=== PATIENT | female | born 1970 | race Caucasian/White ===

== ENCOUNTER 2016-09-10 11:02 | Inpatient (IN) ==
[2016-09-10] MEDS ORDERED: ONDANSETRON 4 MG/2 ML VIAL IV STA (11:44)
[2016-09-10] MEDS ORDERED: SODIUM CHLORIDE 0.9% 1,000 ML IV STA (11:44)
[2016-09-10] MEDS ORDERED: LOPERAMIDE 2 MG CAPSULE PO STA (11:44)
[2016-09-10 12:00] LABS: Basophils % 0.4 % (0.0-0.8); Eosinophils # 0.1 10*3/uL (0.0-0.87); Hematocrit 43.5 VOL% (35.7-47.0); Hemoglobin 14.7 GM/DL (12.0-16.0); Immature Granulocytes % 0.3 %; Immature Granulocytes Absolute 0.03 #; Lymphocytes # 0.7 10*3/uL (1.4-4.0); Lymphocytes % 6.3 % (21.3-54.2); Mean Corpuscular HGB Conc 33.8 GM/DL (32-36); Mean Corpuscular Hemoglobin 29 PG (27-34); Mean Corpuscular Volume 86.8 FL (87-102); Mean Platelet Volume 9.6 FL (9.6-12.0); Monocytes # 0.6 10*3/uL (0.11-0.8); Monocytes % 5.3 % (1.7-12.7); Neutrophils # 9.6 10*3/uL (1.4-7.4); Neutrophils % 86.7 % (38.7-73.9); Platelet Count 267 T/CUMM (130-400); Red Blood Count 5.01 MC/CUMM (3.8-5.5); Red Cell Distribution Width 12.9 % (9.3-17.3); White Blood Count 11.1 T/CUMM (4-12)
[2016-09-10] MEDS ORDERED: ONDANSETRON 4 MG/2 ML VIAL ONE (12:11)
[2016-09-10] MEDS ORDERED: LOPERAMIDE 2 MG CAPSULE ONE (12:11)
--- NOTE | 2016-09-10 12:20 | Emergency Department Note ---
Annie Wilkinson Gwan, am scribing for, and in the presence of, Eric Burnett MD 11:51 . Hortencia Wilkinson James D, MD, personally performed the services described in this documentation, ascribed by Liliana Valencia in my presence, and it is both accurate and complete 219 . Arrival - Arrival Chief Complaint: Nausea/Vomiting/Diarrhea Stated Complaint: n/v/d has diabetes ED Nursing Triage Note: n/v/d onset x few hours - pt is insulin dependent DM - accu check 156 Mode of Arrival: Ambulatory Limitations: No Limitations Source: Patient, Old Records Reviewed, RN Notes Reviewed Time Seen by Provider: 09/10/16 11:38 - History of Present Illness HPI Narrative: Pt is a female who presents to the ED with a c/o N/V/D with an onset this morning. During triage, pt accu chesk was 156. 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 She denies having WHITE, any abd pain or being compliant with her medication this morning. Patient confirmed that since onset she has had emesis 3x and watery diarrhea 2x. Patient is followed by Dr. Pantoja. She then said that she consulted Dr. Pantoja and was then instructed to report to ED for further evaluation. No other problems/compliant reported in ED. Onset (ago): hour(s) Consistency: constant Severity: moderate Date of Last Menstrual Period: ablasion Allergies/Adverse Reactions: Allergies Allergy/AdvReac Type Severity Reaction Status Date / Time No Known Allergies Allergy Verified 03/07/16 00:39 Home Medications: Home Medications Medication Instructions Recorded Confirmed Type Citalopram [CeleXA] 40 mg PO BEDTIME 07/31/15 09/10/16 History Metformin HCl [Metformin HCl] 1,000 mg PO BID W/MEALS 07/31/15 09/10/16 History Rosuvastatin [Crestor] 10 mg PO DAILY 07/31/15 09/10/16 History Insulin Degludec [Tresiba 40 units SUBCUT BEDTIME 04/08/16 09/10/16 History Flextouch U-100] Topiramate 75 mg PO BID 04/08/16 09/10/16 History Aspirin EC Tab 81 mg PO DAILY 09/10/16 09/10/16 History Celecoxib [Celecoxib] 200 mg PO DAILY 09/10/16 09/10/16 History Cholecalciferol (Vitamin D3) 1,000 unit PO QAM 09/10/16 09/10/16 History [Vitamin D3] Dulaglutide [Trulicity] 0.5 ml SUBCUT PENA 09/10/16 09/10/16 History Fluticasone/Salmeterol [Advair Hfa 12 gm INH BID PRN 09/10/16 09/10/16 History 45-21 Mcg Inhaler] Gabapentin Cap/Tab [Neurontin 300 mg PO BEDTIME 09/10/16 09/10/16 History Cap/Tab] Glimepiride [Glimepiride] 1 mg PO DAILY 09/10/16 09/10/16 History Metoprolol Succinate [Metoprolol 100 mg PO BID 09/10/16 09/10/16 History Succinate] Review of System - Review of System 12 point system: reviewed and no additional remarkable complaints except as stated - Review of System Constitutional: Absent: chills, fever Head/Ears/Nose/Throat: Absent: earache Respiratory: Absent: cough Cardiovascular: Absent: chest pain Gastrointestinal: Present: as per HPI, abdominal pain, nausea, vomiting, diarrhea Medical,Surgical,& Family Hx - Medical History Cardio: History of: Hypertension Neurology: History of: Migraine, TIA Endocrine: History of: Diabetes Mellitus (IDDM) - Social History Smoking Status: Never smoker Frequency of Alcohol Use: None Type of Drug Use: None Exam Physical Examination: GENERAL: This is a well-nourished, well-developed white female in no apparent distress. VITAL SIGNS: HEENT: Head is normocephalic and atraumatic. Pupils are equally round and reactive to light. Extraocular movement are intact. Oropharynx is benign with dry mucous membranes. NECK: Neck is soft and supple without tenderness. There are no masses. There is no lymphadenopathy. LUNGS: Lungs are clear to auscultation bilaterally. Chest rises symmetrically. There is no chest wall tenderness. CV: Heart is regular rate and rhythm without murmurs, rubs, or gallops. ABDOMEN: Abdomen is soft, non-tender to palpation. There are no abnormal masses palpated. There is no organomegaly. Bowel sounds are present and active. SKIN: Skin is warm and dry. No rash. EXTREMITIES: Patient has full range of motion without tenderness. There is no pedal edema. NEUROLOGIC: Awake, alert, and oriented x4. Cranial nerves II through XII are grossly intact. There are no motorsensory deficits. PSYCHIATRIC: Normal affect. Normal mood. Vital Signs: Vital Signs Temperature 97.7 F 09/10/16 11:18 Pulse Rate 86 09/10/16 13:00 Respiratory Rate 18 09/10/16 13:00 Blood Pressure 145/97 09/10/16 13:00 O2 Sat by Pulse Oximetry 96 09/10/16 13:00 Course - Consultations Consultation #1: Discussed with Dr. Pantoja. Patient will be admitted to his service. Initial orders written for him. Care will be assumed by him upon patient's arrival to the [facility]. Time: 13:48 Results - Labs CBC & BMP: 09/10/16 11:56 09/10/16 11:56 Lab Results: I have reviewed the patients labs Labs: Laboratory Tests 09/10/16 11:56 WBC 11.1 RBC 5.01 Hgb 14.7 Hct 43.5 MCV 86.8 L Neut % (Auto) 86.7 H Lymph % (Auto) 6.3 L Neut # (Auto) 9.6 H Lymph # (Auto) 0.7 L Laboratory Tests 09/10/16 11:56 Lipase 1042.0 H - Diagnostic Findings Procedure: Abdominal x-ray: image reviewed by me (Nonspecific gas pattern, no free air, gas in the rectum.), Ultrasound: report reviewed by me (Sludge in the gallbladder, dilated duct.) Disposition Clinical Impression: Nausea vomiting and diarrhea, Diabetes mellitus, Pancreatitis Case discussed with: patient Disposition: Still a Patient Condition: Stable Time of Disposition: 13:40
--- NOTE | 2016-09-10 12:24 | XRay Report ---
History: Nausea, vomiting, diarrhea Date: 09/10/2016 Study: Flat and erect abdomen Comparison exam: No previous There is no evidence of pneumoperitoneum. The bowel gas pattern is nonobstructive without gross mass lesion. No radiopaque calculi are seen. There is no osseous abnormality. Calcified injection granulomata overlie the soft tissues of either flank. Impression: No acute abdominal process PROCEDURE INTERPRETED AT [facility] DEPARTMENT OF RADIOLOGY Final Report Signed by: Dr. Roberta Traylor
[2016-09-10 12:35] LABS: Albumin 3.8 G/DL (3.4-5.0); Bilirubin,Total 0.4 MG/DL (0.2-1.0); Calcium 8.5 MG/DL (8.5-10.1); Osmolality,Calculated 282.7 MOS/KG (273-304); Potassium 3.9 MMOL/L (3.5-5.1); Total Protein 7.9 G/DL (6.4-8.3)
--- NOTE | 2016-09-10 14:49 | Ultrasound Report ---
Exam: US gallbladder Date: 09/10/2016 1:46 PM Comparison: 02/17/2012 Indication: Pancreatitis Technique:[Multiple transabdominal real-time scans were obtained of the right upper quadrant. Color flow scans obtained. Ultrasound images were captured and stored.] Findings: Small hyperechoic foci noted in the gallbladder which do not move or produce significant acoustical shadowing. The gallbladder measures 2.6 mm with negative sonographic Dias sign. CBD measures 5.9 mm compared to 4.9 mm. The liver is normal in size with fatty infiltration. No liver masses are identified. Right kidney measures 153 mm in length with minimal dilatation of the extrarenal pelvis. The pancreas is enlarged and partially obscured by bowel gas. Pancreatic duct measures 4.5 mm compared to 3.3 mm. The aorta including the aortic bifurcation, and IVC obscured by bowel gas. Color flow documented in the portal vein. Impression: Sludge, nonshadowing small gallstones, and/or small polyps. Fatty infiltration of the liver. Persistent minimal dilatation of the right extrarenal pelvis. The pancreas is obscured by bowel gas with findings which can be seen with pancreatitis. Progressive nonspecific minimal dilatation of the pancreatic duct. PROCEDURE INTERPRETED AT [facility] DEPARTMENT OF RADIOLOGY Final Report Signed by: Dr. Trinity Yang
[2016-09-10] MEDS ORDERED: ONDANSETRON 4 MG/2 ML VIAL IV PRN (16:04)
[2016-09-10] MEDS ORDERED: GLUCAGON 1 MG VIAL IM PRN (16:04)
[2016-09-10] MEDS ORDERED: HYDROmorphone 2 MG/1 ML VIAL IV PRN (16:04)
[2016-09-10] MEDS ORDERED: FLUTICASONE INH PRN (16:31)
[2016-09-10] MEDS ORDERED: SALMETEROL INH PRN (16:31)
--- NOTE | 2016-09-10 16:35 | Internal Med History&Physical ---
Assessment and Plan (1) Pancreatitis Status: Acute Assessment and plan: 46-year-old female admitted to acute care * Acute pancreatitis. This could be related to possible gallstones or chronic cholecystitis. Patient is also on trulicity. Will start her on IV fluids. Will consult Dr. Traylor to see the patient. She has some dilatation of pancreatic duct. She may require an ERCP if not better. She may be a candidate for cholecystectomy at some stage. * Nausea vomiting and diarrhea. Will give her IV fluids. * Hypertension. Blood pressure medications will be continued * Diabetes. She will be started on a sliding scale. * Discussed with patient. Current Visit: Yes (2) Hypertension Status: Acute Current Visit: Yes (3) Obstructive sleep apnea Status: Acute Current Visit: Yes (4) History of CVA (cerebrovascular accident) Status: Acute Current Visit: Yes (5) Diabetes mellitus Status: Acute Current Visit: Yes (6) Nausea vomiting and diarrhea Status: Acute Current Visit: Yes History of Present Illness Chief complaint: Nausea vomiting and diarrhea History of present illness: Ms. Blandon is a 46 year old female with history of insulin-dependent diabetes, hypertension, obstructive sleep apnea, depression, CVA and obesity. She presented to the emergency room with complaints of nausea vomiting and diarrhea for last few days. 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 In the emergency room patient was evaluated and was found to have acute pancreatitis. She also underwent ultrasound of gallbladder which showed possible polyps versus gallstones and mildly dilated pancreatic duct. She has been admitted for evaluation and treatment. She denies any chest pain or shortness of breath. She has some abdominal discomfort. She denies any fever or chills. She has been under a lot of stress lately. She lives with her . She occasionally drinks alcohol but does not smoke Home Medications Medication Instructions Recorded Confirmed Type Citalopram [CeleXA] 40 mg PO BEDTIME 07/31/15 09/10/16 History Metformin HCl [Metformin HCl] 1,000 mg PO BID W/MEALS 07/31/15 09/10/16 History Rosuvastatin [Crestor] 10 mg PO DAILY 07/31/15 09/10/16 History Insulin Degludec [Tresiba 40 units SUBCUT BEDTIME 04/08/16 09/10/16 History Flextouch U-100] Topiramate 75 mg PO BID 04/08/16 09/10/16 History Aspirin EC Tab 81 mg PO DAILY 09/10/16 09/10/16 History Celecoxib [Celecoxib] 200 mg PO DAILY 09/10/16 09/10/16 History Cholecalciferol (Vitamin D3) 1,000 unit PO QAM 09/10/16 09/10/16 History [Vitamin D3] Dulaglutide [Trulicity] 0.5 ml SUBCUT PENA 09/10/16 09/10/16 History Fluticasone/Salmeterol [Advair Hfa 12 gm INH BID PRN 09/10/16 09/10/16 History 45-21 Mcg Inhaler] Gabapentin Cap/Tab [Neurontin 300 mg PO BEDTIME 09/10/16 09/10/16 History Cap/Tab] Glimepiride [Glimepiride] 1 mg PO DAILY 09/10/16 09/10/16 History Metoprolol Succinate [Metoprolol 100 mg PO BID 09/10/16 09/10/16 History Succinate] Allergies Allergy/AdvReac Type Severity Reaction Status Date / Time No Known Allergies Allergy Verified 03/07/16 00:39 Medical,Surgical,& Family Hx - Medical History Cardio: History of: Hypertension Neurology: History of: Cerebrovascular Accident, Migraine, Peripheral Neuropathy , TIA Endocrine: History of: Diabetes Mellitus (IDDM), Dyslipidemia Respiratory: History of: Obstructive Sleep Apnea - Surgical History Reproductive Surgeries: Surgical HX of;: Breast Surgery (Breast reduction twice) - Family History Family History: Reports;: Family Hypertension - Social History Smoking Status: Never smoker Frequency of Alcohol Use: None Type of Drug Use: None Marital Status: Lives With:: Spouse Functional capacity: independent ambulation 12 point system: reviewed and no additional remarkable complaints except as stated (As mentioned in HPI) Exam - Constitutional Vitals: Period Temp Pulse Resp BP Sys/Gonzales Pulse Ox Last 24 Hr 89-91 16-18 115-145/69-90 97-99 Exam: Examination: GENERAL: NAD. HEENT: PERRLA. EOMI. Mucous membranes are moist. NECK: Neck is supple. No JVD. No carotid bruit. No thyromegaly. CVS: Regular rate and rhythm. S1 and S2 are normal. RESPIRATORY: Lungs are clear. No rales or rhonchi. ABDOMEN: Soft but tender in right upper quadrant and epigastric area. Bowel sounds are present. There is no rebound tenderness or rigidity EXT: No edema. Peripheral pulses are present. LINGO CLEANER: Patient is awake, alert and oriented to time place and person. Cranial nerves II through XII are grossly intact. Motor strength is 5 over 5 both upper and lower extremities. SKIN: Warm and dry. MSK: No obvious deformity. Results - Labs CBC & BMP: 09/10/16 11:56 09/10/16 11:56 Lab Results: I have reviewed the past 24 hour labs
[2016-09-10] MEDS: SODIUM CHLORIDE 0.9% 1,000 ML IV SCH ×2 (16:46→23:23)
[2016-09-10] MEDS: INSULIN LISPRO 100 UNIT/ML SUBCUT SCH ×2 (16:54→20:35)
[2016-09-10] MEDS: DEXTROSE 50% 25 GM/50 ML VIAL IV PRN (20:32)
[2016-09-10] MEDS: TOPIRAMATE 25 MG TABLET PO SCH (20:34)
[2016-09-10] MEDS: CITALOPRAM 40 MG TABLET PO SCH (20:34)
[2016-09-10] MEDS: GABAPENTIN 300 MG CAPSULE PO SCH (20:34)
[2016-09-10] MEDS: DOCUSATE SODIUM 100 MG CAPSULE PO SCH (20:34)
[2016-09-10] MEDS: METOPROLOL SUCCINATE XL 100 MG TABLET PO SCH (20:35)
[2016-09-11 03:55] LABS: Basophils % 0.8 % (0.0-0.8); Eosinophils # 0.2 10*3/uL (0.0-0.87); Eosinophils % 3.1 % (0.00-10.9); Hematocrit 38.5 VOL% (35.7-47.0); Hemoglobin 12.7 GM/DL (12.0-16.0); Immature Granulocytes % 0.4 %; Immature Granulocytes Absolute 0.02 #; Lymphocytes # 0.9 10*3/uL (1.4-4.0); Lymphocytes % 17.5 % (21.3-54.2); Mean Corpuscular Hemoglobin 29 PG (27-34); Mean Corpuscular Volume 88.5 FL (87-102); Mean Platelet Volume 9.4 FL (9.6-12.0); Monocytes # 0.5 10*3/uL (0.11-0.8); Monocytes % 10.6 % (1.7-12.7); Neutrophils # 3.5 10*3/uL (1.4-7.4); Neutrophils % 67.6 % (38.7-73.9); Platelet Count 204 T/CUMM (130-400); Red Blood Count 4.35 MC/CUMM (3.8-5.5); White Blood Count 5.1 T/CUMM (4-12)
[2016-09-11 04:46] LABS: Albumin 3.2 G/DL (3.4-5.0); Bilirubin,Total 0.5 MG/DL (0.2-1.0); Calcium 7.6 MG/DL (8.5-10.1); Potassium 3.5 MMOL/L (3.5-5.1); Total Protein 5.8 G/DL (6.4-8.3)
[2016-09-11] MEDS: ACETAMINOPHEN 325 MG TABLET PO PRN ×2 (05:27→10:30)
[2016-09-11] MEDS: SODIUM CHLORIDE 0.9% 1,000 ML IV SCH ×3 (05:30→12:53)
--- NOTE | 2016-09-11 08:03 | Internal Med Progress Note ---
Assessment and Plan (1) Pancreatitis Status: Acute Assessment and plan: 46-year-old female admitted to acute care * Acute pancreatitis. She is doing much better today. Her lipase is down. Her abdominal pain is better. She is still n.p.o. Dr. Traylor will see her today. We can advance her diet if it is okay with GI. She may require ERCP and /or cholecystectomy * Nausea vomiting and diarrhea. Resolved. Will decrease IV fluids. * Hypertension. Blood pressure medications will be continued * Diabetes. She will be started on a sliding scale. * Discussed with patient. Current Visit: Yes (2) Hypertension Status: Acute Current Visit: Yes (3) Obstructive sleep apnea Status: Acute Current Visit: Yes (4) History of CVA (cerebrovascular accident) Status: Acute Current Visit: Yes (5) Diabetes mellitus Status: Acute Current Visit: Yes (6) Nausea vomiting and diarrhea Status: Acute Current Visit: Yes Internal Medicine - PN: Subj Interval history: She is feeling better this morning. No chest pain or shortness of breath. No nausea vomiting or diarrhea. She is having some headaches. Exam (Progress Note) - Constitutional Vitals: Period Temp Pulse Resp BP Sys/Gonzales Pulse Ox Last 24 Hr 97.5 F-99.6 F 83-94 16-20 114-145/59-90 92-99 Exam: Examination: GENERAL: NAD. NECK: Neck is supple. CVS: Regular rate and rhythm. RESPIRATORY: Lungs are clear. ABDOMEN: Soft but tender in right upper quadrant and epigastric area. There is no rebound tenderness or rigidity EXT: No edema. [employer]: Nonfocal SKIN: Warm and dry. MSK: No obvious deformity. Results - Labs CBC & BMP: 09/11/16 03:35 09/11/16 03:35 Lab Results: I have reviewed the past 24 hour labs
[2016-09-11] MEDS: INSULIN LISPRO 100 UNIT/ML SUBCUT SCH ×4 (08:23→20:00)
[2016-09-11 08:26] LABS: Risk Ratio 4.92; VLDL CHOLESTEROL 31.2 MG/DL
--- NOTE | 2016-09-11 09:58 | Gastrointestinal Consult Note ---
Assessment and Plan (1) Pancreatitis Status: Acute Assessment and plan: 09/11-Sudden onset N/V, abd pain with findings of elevated lipase on admission. US results noted as below. Lipase down at 374 today. Pain improved. Plan and addendum to follow by Dr Traylor. Current Visit: Yes History of Present Illness Chief complaint: Abd pain, N/V History of present illness: Ms. Blandon is a 46 year old female who presented to the ER on yesterday following onset of nausea, vomiting and abdominal pain. Pt states that she went to work yesterday morning but wasnt feeling well. She states shortly after getting to work she had onset of nausea and began vomiting. States she vomited a couple of times and decided to leave work. On the way home she became so nauseated that she decided to go to the ER for further evaluation. She states she also had some abdominal pain, discomfort in her upper abdomen along with the nausea and vomiting. She denies any fever or chills. Denies any coffee ground or hemetemesis. 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 Pt was found on admission to have elevated lipase level at 1042. She had an US as well that showed sludge and small gallstones with CBD at 5.9mm as well as fatty liver. Pancreas was obscured by bowel gas on exam. LFTs were unremarkable. Lipase is down today at 374. Pt states she has had an episode of pancreatitis in the past 5 years ago but states she was not told the cause of this. She has a negative history of ETOH other than occasional drink a couple of times a year. She does not smoke. She denies any weight loss or history of gallbladder disease. Home Medications Medication Instructions Recorded Confirmed Type Citalopram [CeleXA] 40 mg PO BEDTIME 07/31/15 09/10/16 History Metformin HCl [Metformin HCl] 1,000 mg PO BID W/MEALS 07/31/15 09/10/16 History Rosuvastatin [Crestor] 10 mg PO DAILY 07/31/15 09/10/16 History Insulin Degludec [Tresiba 40 units SUBCUT BEDTIME 04/08/16 09/10/16 History Flextouch U-100] Topiramate 75 mg PO BID 04/08/16 09/10/16 History Aspirin EC Tab 81 mg PO DAILY 09/10/16 09/10/16 History Celecoxib [Celecoxib] 200 mg PO DAILY 09/10/16 09/10/16 History Cholecalciferol (Vitamin D3) 1,000 unit PO QAM 09/10/16 09/10/16 History [Vitamin D3] Dulaglutide [Trulicity] 0.5 ml SUBCUT PENA 09/10/16 09/10/16 History Fluticasone/Salmeterol [Advair Hfa 12 gm INH BID PRN 09/10/16 09/10/16 History 45-21 Mcg Inhaler] Gabapentin Cap/Tab [Neurontin 300 mg PO BEDTIME 09/10/16 09/10/16 History Cap/Tab] Glimepiride [Glimepiride] 1 mg PO DAILY 09/10/16 09/10/16 History Metoprolol Succinate [Metoprolol 100 mg PO BID 09/10/16 09/10/16 History Succinate] Allergies Allergy/AdvReac Type Severity Reaction Status Date / Time No Known Allergies Allergy Verified 03/07/16 00:39 Medical,Surgical,& Family Hx - Medical History Cardio: History of: Hypertension Neurology: History of: Cerebrovascular Accident, Migraine, Peripheral Neuropathy , TIA Endocrine: History of: Diabetes Mellitus (IDDM), Dyslipidemia Respiratory: History of: Obstructive Sleep Apnea - Surgical History Reproductive Surgeries: Surgical HX of;: Breast Surgery (Breast reduction twice) - Family History Family History: Reports;: Family Hypertension - Social History Smoking Status: Never smoker Frequency of Alcohol Use: None Type of Drug Use: None 12 point system: reviewed and no additional remarkable complaints except as stated - Constitutional Constitutional: Present: as per HPI - EENT Eyes: Present: as per HPI Ears: Present: as per HPI Nose, mouth and throat: Present: as per HPI - Cardiovascular Cardiovascular: Present: as per HPI - Respiratory Respiratory: Present: as per HPI - Gastrointestinal Gastrointestinal: Present: as per HPI, abdominal pain, nausea, vomiting - Genitourinary Genitourinary: Present: as per HPI - Musculoskeletal Musculoskeletal: Present: as per HPI - Neurological Neurological: Present: as per HPI - Psychiatric Psychiatric: Present: as per HPI - Endocrine Endocrine: Present: as per HPI - Hematologic/Lymphatic Hematologic/Lymphatic: Present: as per HPI Exam - Constitutional Vitals: Period Temp Pulse Resp BP Sys/Gonzales Pulse Ox Last 24 Hr 97.5 F-99.6 F 81-94 16-20 112-145/59-90 91-99 General appearance: no acute distress, over weight - Head Head exam: Present: normal inspection, normocephalic - Eye Eye exam: Present: other (lids and conjunctiva unremarakble). Absent: scleral icterus - ENT ENT exam: Present: normal exam, normal oropharynx - Neck Neck exam: Present: normal inspection - Respiratory Respiratory exam: Present: clear to auscultation bilaterally. Absent: rales, rhonchi, wheezes - Cardiovascular Cardiovascular exam: Present: regular rate and rhythm. Absent: diastolic murmur , JVD, systolic murmur - GI/Abdominal GI/Abdominal exam: Present: normal bowel sounds, tenderness, soft. Absent: ascites, distended, mass, organomegaly - Extremities Exam Extremities exam: Present: normal inspection, full ROM - Back Exam Back exam: Present: normal inspection - Neurological Exam Neurological exam: Present: alert, oriented X3 - Psychiatric Psychiatric exam: Present: normal affect, normal mood - Skin Skin exam: Present: normal color, warm, dry Results - Labs CBC & BMP: 09/11/16 03:35 09/11/16 03:35 Lab Results: I have reviewed the past 24 hour labs - Diagnostic Findings Procedure: Ultrasound: report reviewed by me
[2016-09-11] MEDS: TOPIRAMATE 25 MG TABLET PO SCH ×2 (10:29→21:09)
[2016-09-11] MEDS: PANTOPRAZOLE 40 MG TABLET PO SCH (10:29)
[2016-09-11] MEDS: DOCUSATE SODIUM 100 MG CAPSULE PO SCH ×2 (10:29→21:20)
[2016-09-11] MEDS: METOPROLOL SUCCINATE XL 100 MG TABLET PO SCH ×2 (10:32→21:09)
--- NOTE | 2016-09-11 12:18 | General Surgery Consult Note ---
Assessment and Plan - Time spent with patient Time spent with patient: Less than 30 minutes (1) Pancreatitis Status: Acute Assessment and plan: Her pancreatitis appears to be resolving and likely was from her small gallstones and sludge. She has no evidence of biliary obstruction and appears improved. I discussed the need for cholecystectomy prevent recurrence. Procedure has been discussed and she is thinking about it. She wants to follow with me in my office on Wednesday to discuss this further and discuss whether to go ahead with cholecystectomy. Current Visit: Yes Qualifiers: Chronicity: acute Pancreatitis type: biliary History of Present Illness Chief complaint: pancreatitis History of present illness: Ms. Blandon is a 46 year old female Who presented with vague epigastric pain and nausea and was noted to have elevated lipase and gallstones. Her pain and nausea subsided. The pain she described as mild to moderate and localized to the epigastric region. She does not know of aggravating or alleviating factors. She had a ultrasound which showed gallstones and sludge and no ductal dilatation. She states that she has had previous similar episode. Home Medications Medication Instructions Recorded Confirmed Type Citalopram [CeleXA] 40 mg PO BEDTIME 07/31/15 09/10/16 History Metformin HCl [Metformin HCl] 1,000 mg PO BID W/MEALS 07/31/15 09/10/16 History Rosuvastatin [Crestor] 10 mg PO DAILY 07/31/15 09/10/16 History Insulin Degludec [Tresiba 40 units SUBCUT BEDTIME 04/08/16 09/10/16 History Flextouch U-100] Topiramate 75 mg PO BID 04/08/16 09/10/16 History Aspirin EC Tab 81 mg PO DAILY 09/10/16 09/10/16 History Celecoxib [Celecoxib] 200 mg PO DAILY 09/10/16 09/10/16 History Cholecalciferol (Vitamin D3) 1,000 unit PO QAM 09/10/16 09/10/16 History [Vitamin D3] Dulaglutide [Trulicity] 0.5 ml SUBCUT PENA 09/10/16 09/10/16 History Fluticasone/Salmeterol [Advair Hfa 12 gm INH BID PRN 09/10/16 09/10/16 History 45-21 Mcg Inhaler] Gabapentin Cap/Tab [Neurontin 300 mg PO BEDTIME 09/10/16 09/10/16 History Cap/Tab] Glimepiride [Glimepiride] 1 mg PO DAILY 09/10/16 09/10/16 History Metoprolol Succinate [Metoprolol 100 mg PO BID 09/10/16 09/10/16 History Succinate] Allergies Allergy/AdvReac Type Severity Reaction Status Date / Time No Known Allergies Allergy Verified 03/07/16 00:39 Medical,Surgical,& Family Hx - Medical History Cardio: History of: Hypertension Neurology: History of: Cerebrovascular Accident, Migraine, Peripheral Neuropathy , TIA Endocrine: History of: Diabetes Mellitus (IDDM), Dyslipidemia Respiratory: History of: Obstructive Sleep Apnea - Surgical History Reproductive Surgeries: Surgical HX of;: Breast Surgery (Breast reduction twice) - Family History Family History: Reports;: Family Hypertension - Social History Smoking Status: Never smoker Frequency of Alcohol Use: None Type of Drug Use: None - Constitutional Constitutional: Absent: chills, fever(s) - Cardiovascular Cardiovascular: Absent: chest pain at rest, chest pain with activity - Respiratory Respiratory: Absent: cough, dyspnea - Gastrointestinal Gastrointestinal: Present: abdominal pain, nausea, vomiting. Absent: jaundice Exam - Constitutional Vitals: Period Temp Pulse Resp BP Sys/Gonzales Pulse Ox Last 24 Hr 97.5 F-99.6 F 81-94 16-20 112-145/59-90 91-99 General appearance: no acute distress, morbidly obese - Head Head exam: Present: normocephalic - Eye Eye exam: Absent: scleral icterus - ENT Mouth exam: Present: normal voice - Neck Neck exam: Present: trachea midline - Respiratory Respiratory exam: Present: clear to auscultation bilaterally. Absent: accessory muscle use - Cardiovascular Cardiovascular exam: Present: RRR - GI/Abdominal GI/Abdominal exam: Present: soft. Absent: distended, guarding, mass, Dias's sign, tenderness, rebound - Neurological Exam Neurological exam: Present: alert, oriented X3 Speech: Present: normal Results - Labs CBC & BMP: 09/11/16 03:35 09/11/16 03:35 Lab Results: I have reviewed the past 24 hour labs
[2016-09-11] MEDS: DEXTROSE 50% 25 GM/50 ML VIAL IV PRN ×2 (12:47→20:54)
[2016-09-11] MEDS: GABAPENTIN 300 MG CAPSULE PO SCH (21:18)
[2016-09-11] MEDS: CITALOPRAM 40 MG TABLET PO SCH (21:20)
[2016-09-12] MEDS: DEXTROSE 50% 25 GM/50 ML VIAL IV PRN (01:49)
[2016-09-12 04:22] LABS: Basophils % 0.7 % (0.0-0.8); Eosinophils # 0.2 10*3/uL (0.0-0.87); Eosinophils % 3.8 % (0.00-10.9); Hematocrit 37.7 VOL% (35.7-47.0); Hemoglobin 12.5 GM/DL (12.0-16.0); Lymphocytes # 1.2 10*3/uL (1.4-4.0); Mean Corpuscular HGB Conc 33.2 GM/DL (32-36); Mean Corpuscular Hemoglobin 29 PG (27-34); Mean Corpuscular Volume 87.3 FL (87-102); Monocytes # 0.6 10*3/uL (0.11-0.8); Monocytes % 13.2 % (1.7-12.7); Neutrophils # 2.3 10*3/uL (1.4-7.4); Neutrophils % 54.3 % (38.7-73.9); Platelet Count 215 T/CUMM (130-400); Red Blood Count 4.32 MC/CUMM (3.8-5.5); Red Cell Distribution Width 13.2 % (9.3-17.3); White Blood Count 4.3 T/CUMM (4-12)
[2016-09-12 04:47] LABS: Alanine Aminotransferase 30 U/L (13-56); Albumin 3.1 G/DL (3.4-5.0); Alkaline Phosphatase 37 U/L (45-117); Aspartate Amino Transferase 25 U/L (0-37); Bilirubin,Total < 0.39 MG/DL (0.2-1.0); Blood Urea Nitrogen 5 MG/DL (7-18); Calcium 8.3 MG/DL (8.5-10.1); Glucose 153 MG/DL (74-106); Potassium 4.2 MMOL/L (3.5-5.1); Sodium 143 MMOL/L (136-145); Total Protein 6.2 G/DL (6.4-8.3)
[2016-09-12] MEDS: ACETAMINOPHEN 325 MG TABLET PO PRN (06:17)
--- NOTE | 2016-09-12 07:51 | Family Practice Progress Note ---
Family Practice - PN: Subj Interval history: Patient seen this morning she is stable had a fairly good night last night. Her CBC this morning is normal. Chemistry reveals a glucose of 80 she did go down fairly significantly. Her amylase and lipase are within normal limits this morning at 37 and 119. Not having any significant pain with palpation, just a little bit of midepigastric fullness. Will consider discharging either later today or tomorrow. Exam (Progress Note) - Constitutional Vitals: Period Temp Pulse Resp BP Sys/Gonzales Pulse Ox Last 24 Hr 97.3 F-98.7 F 72-78 16-20 114-144/57-75 91-98 Exam: Generally unchanged from previous. HEENT pupils equal reactive to light neck supple trachea midline Cardiovascular rate is regular rate 78 blood pressure 142/75 Lungs clear Abdomen soft, no tenderness. Patient states she has some baseline mid abdominal discomfort but is with her all the time Results - Labs CBC & BMP: 09/12/16 02:40 09/12/16 02:40 Specialty Discharge - Follow Up or Referrals Follow up with: Ruy Miner III., MD [Physician] - 09/14/16 10:30 am
[2016-09-12] MEDS: DOCUSATE SODIUM 100 MG CAPSULE PO SCH ×2 (08:35→21:00)
[2016-09-12] MEDS: PANTOPRAZOLE 40 MG TABLET PO SCH (08:35)
[2016-09-12] MEDS: TOPIRAMATE 25 MG TABLET PO SCH ×2 (08:35→20:59)
[2016-09-12] MEDS: METOPROLOL SUCCINATE XL 100 MG TABLET PO SCH ×2 (08:36→21:00)
[2016-09-12] MEDS: INSULIN LISPRO 100 UNIT/ML SUBCUT SCH ×4 (09:09→21:03)
[2016-09-12] MEDS: SODIUM CHLORIDE 0.9% 1,000 ML IV SCH ×4 (09:10→18:49)
[2016-09-12] MEDS: CITALOPRAM 40 MG TABLET PO SCH (20:59)
[2016-09-12] MEDS: GABAPENTIN 300 MG CAPSULE PO SCH (21:00)
[2016-09-13] MEDS: SODIUM CHLORIDE 0.9% 1,000 ML IV SCH (04:33)
[2016-09-13 08:02] VITALS: BP 131/91
[2016-09-13] MEDS: INSULIN LISPRO 100 UNIT/ML SUBCUT SCH (08:46)
[2016-09-13] MEDS: TOPIRAMATE 25 MG TABLET PO SCH (08:47)
[2016-09-13] MEDS: DOCUSATE SODIUM 100 MG CAPSULE PO SCH (08:47)
[2016-09-13] MEDS: PANTOPRAZOLE 40 MG TABLET PO SCH (08:47)
--- NOTE | 2016-09-13 08:47 | Discharge Summary ---
Hospital Course - Hospital Course Hospital Course: Patient a 46-year-old female came to the hospital with nausea vomiting abdominal pain it was found that she has pancreatitis with elevated amylase and lipase. Did have some small gallstones and sludge on ultrasound, her common bile duct was measured at 5.9 mm. And was seen by both GI and surgery. She is doing much better now. Does have fairly brittle diabetes but sugars have been under control. Her liver function tests have been unremarkable. Has had discussion with general surgery concerning removal gallbladder and the going to do this on an outpatient basis, Dr. Kristofer Quiroz third and this will be scheduled what she cools down a little bit from the current situation Specialty Discharge - Follow Up or Referrals Follow up with: Ruy Miner III., MD [Physician] - 09/14/16 10:30 am Discharge Plan - Discharge Data Disposition: Disch To Home/Self Care Condition at Discharge: Stable Discharge Diet: advance to your usual diet, low fat, low cholesterol Activity: resume usual activities as tolerated Hygiene: no restrictions Weight Bearing at Discharge: full weight bearing Driving: no restrictions Contact your physician if you experience:: fever over 101, Nausea/Vomiting, pain uncontrolled by pain medications - Discharge Medications Continue Citalopram [CeleXA] 40 mg PO BEDTIME Rosuvastatin [Crestor] 10 mg PO DAILY Topiramate 75 mg PO BID Insulin Degludec [Tresiba Flextouch U-100] 40 units SUBCUT BEDTIME Aspirin EC Tab 81 mg PO DAILY Dulaglutide [Trulicity] 0.5 ml SUBCUT PENA Gabapentin Cap/Tab [Neurontin Cap/Tab] 300 mg PO BEDTIME Celecoxib 200 mg PO DAILY Metoprolol Succinate 100 mg PO BID Fluticasone/Salmeterol [Advair Hfa 45-21 Mcg Inhaler] 12 gm INH BID PRN PRN Reason: Shortness Of Breath/Wheezing Cholecalciferol (Vitamin D3) [Vitamin D3] 1,000 unit PO QAM Discontinued Metformin HCl [Metformin HCl] 1,000 mg PO BID W/MEALS Glimepiride [Glimepiride] 1 mg PO DAILY - Follow Up or Referral Follow Up: Ruy Miner III., MD [Physician] - 09/14/16 10:30 am Juan Manuel Pantoja MD [Physician] - 2 Weeks - Forms/Instructions Exam - Constitutional Vitals: Period Temp Pulse Resp BP Sys/Gonzales Pulse Ox Last 24 Hr 97.0 F-99.1 F 62-84 15-20 92-134/57-91 95-99 Discharge Results Labs on day of discharge: Labs from last 24 hours 09/13/16 09/12/16 09/12/16 07:31 20:58 15:42 POC Glucose 121 H 136 H 164 H 09/12/16 11:14 POC Glucose 140 H DS: Provider Date of admission: 09/10/16 13:42 Primary care physician: . No PCP Attending physician on admission: Juan Manuel Pantoja MD Consults: 09/10/16 16:04 Consult to Case Mgmt/Social Srvs [CONS] Routine Reason for Case Mgmt/Social Srvs: Discharge Planning 09/10/16 16:16 Consult to Pharmacy [CONS] Routine Reason for Pharmacy Consult: Adjust Meds Renal Funct 09/10/16 16:31 Consult to Physician [CONS] Routine Comment: Acute pancreatitis and possible cholelithiasis Consulting Provider: Waqas Traylor Person Notified: KRUPA IN DR [facility] OFFICE Date Notified: 09/11/16 Time Notified: 08:58 Discharging clinician: Martinez Duron DO
[2016-09-13] MEDS: METOPROLOL SUCCINATE XL 100 MG TABLET PO SCH (08:48)
== END 2016-09-13 11:02 | disposition home or self-care (01) | DRG 440 ==
LOC: N.ED 11:02 → N.EDINP 13:42 → N.2E 15:45
PROVIDERS: ADMIT Internal Medicine; ATTEND Internal Medicine

== ENCOUNTER 2022-07-18 18:07 | Inpatient (IN) ==
[2022-07-18] MEDS ORDERED: SODIUM CHLORIDE 0.9% 1,000 ML IV STA (20:38)
[2022-07-18] MEDS ORDERED: ONDANSETRON 4 MG/2 ML VIAL IV ONE (20:38)
[2022-07-18 21:12] LABS: Basophils % 0.7 % (0.0-0.8); Eosinophils # 0.1 10*3/uL (0.0-0.87); Eosinophils % 1.9 % (0.00-10.9); Hematocrit 46.4 VOL% (35.7-47.0); Hemoglobin 15.2 GM/DL (12.0-16.0); Immature Granulocytes % 0.3 %; Immature Granulocytes Absolute 0.02 #; Lymphocytes # 1.6 10*3/uL (1.4-4.0); Lymphocytes % 27.1 % (21.3-54.2); Mean Corpuscular HGB Conc 32.8 GM/DL (32-36); Mean Corpuscular Volume 86.4 FL (87-102); Mean Platelet Volume 9.7 FL (9.6-12.0); Monocytes # 0.4 10*3/uL (0.11-0.8); Monocytes % 7.3 % (1.7-12.7); Neutrophils % 62.7 % (38.7-73.9); Platelet Count 179 T/CUMM (130-400); Red Blood Count 5.37 MC/CUMM (3.8-5.5); White Blood Count 5.87 T/CUMM (4-12)
[2022-07-18 21:22] LABS: Mucus,Urine Occasional /LPF (Occasional); RBC,Urine 1 /HPF (0-4); Squamous Epithelial Cell,Urine Occasional /HPF (0-10)
[2022-07-18 21:23] LABS: Urine Appearance Clear (Clear); Urine Color Yellow (Yellow); Urine pH 5.5 (4.5-8.0)
[2022-07-18 21:24] LABS: Bilirubin,Urine Negative (Negative); Blood, Urine Negative (Negative); Ketones,Urine Negative (Negative); Nitrite,Urine Negative (Negative); Protein,Urine Trace mg/dL (Negative); Urine Specific Gravity >= 1.030 (1.001-1.035)
[2022-07-18 21:26] LABS: Glucose,Urine (UA) 100 mg/dL (Negative); Urine Urobilinogen 0.2 eU/dL (<2.0)
[2022-07-18 23:09] LABS: Albumin 3.9 G/DL (3.4-5.0); Bilirubin,Total 0.5 MG/DL (0.20-1.00); Calcium 8.8 MG/DL (8.5-10.1); Osmolality,Calculated 281.1 MOS/KG (273-304); Potassium 3.9 MMOL/L (3.5-5.1); Total Protein 7.1 G/DL (6.4-8.2)
[2022-07-18] MEDS ORDERED: ONDANSETRON 4 MG/2 ML VIAL IV STA (23:37)
[2022-07-18] MEDS ORDERED: hydrALAZINE 20 MG/1 ML VIAL IV STA (23:37)
[2022-07-18] MEDS ORDERED: MORPHINE 2 MG/1 ML SYRINGE IV STA (23:38)
[2022-07-19] MEDS ORDERED: MORPHINE 2 MG/1 ML SYRINGE IV PRN (02:20)
[2022-07-19] MEDS: ONDANSETRON 4 MG/2 ML VIAL IV PRN ×3 (02:45→16:17)
[2022-07-19] MEDS ORDERED: ACETAMINOPHEN 500 MG TABLET PO ONE (03:41)
[2022-07-19] MEDS: DEXTROSE 5% NACL 0.45% 1,000 ML IV SCH ×3 (04:54→17:47)
[2022-07-19 05:59] LABS: Basophils % 0.4 % (0.0-0.8); Eosinophils # 0.1 10*3/uL (0.0-0.87); Hematocrit 44.7 VOL% (35.7-47.0); Hemoglobin 14.9 GM/DL (12.0-16.0); Immature Granulocytes % 0.1 %; Immature Granulocytes Absolute 0.01 #; Lymphocytes # 1.5 10*3/uL (1.4-4.0); Lymphocytes % 21.1 % (21.3-54.2); Mean Corpuscular HGB Conc 33.3 GM/DL (32-36); Mean Corpuscular Volume 86.3 FL (87-102); Mean Platelet Volume 9.5 FL (9.6-12.0); Monocytes # 0.6 10*3/uL (0.11-0.8); Monocytes % 8.5 % (1.7-12.7); Neutrophils % 67.9 % (38.7-73.9); Platelet Count 223 T/CUMM (130-400); Red Blood Count 5.18 MC/CUMM (3.8-5.5); Red Cell Distribution Width 13.7 % (9.3-17.3); White Blood Count 7.07 T/CUMM (4-12)
[2022-07-19] MEDS: INSULIN REGULAR 100 UNIT/ML SUBCUT SCH ×3 (06:22→17:25)
[2022-07-19 06:24] LABS: Albumin 3.7 G/DL (3.4-5.0); Bilirubin,Total 0.5 MG/DL (0.20-1.00); Calcium 9.3 MG/DL (8.5-10.1); Osmolality,Calculated 279.4 MOS/KG (273-304); Potassium 3.8 MMOL/L (3.5-5.1); Total Protein 7.5 G/DL (6.4-8.2)
[2022-07-19] MEDS: PANTOPRAZOLE 40 MG VIAL IV SCH (09:45)
[2022-07-19 10:32] LABS: Risk Ratio 5.04; VLDL Cholesterol 40.8 MG/DL
[2022-07-20] MEDS: DEXTROSE 5% NACL 0.45% 1,000 ML IV SCH ×4 (01:00→23:47)
[2022-07-20 05:47] LABS: Basophils % 0.6 % (0.0-0.8); Eosinophils # 0.2 10*3/uL (0.0-0.87); Eosinophils % 2.3 % (0.00-10.9); Hematocrit 44.3 VOL% (35.7-47.0); Hemoglobin 14.4 GM/DL (12.0-16.0); Immature Granulocytes % 0.1 %; Immature Granulocytes Absolute 0.01 #; Lymphocytes # 1.9 10*3/uL (1.4-4.0); Lymphocytes % 26.5 % (21.3-54.2); Mean Corpuscular HGB Conc 32.5 GM/DL (32-36); Mean Corpuscular Volume 87.5 FL (87-102); Mean Platelet Volume 9.5 FL (9.6-12.0); Monocytes # 0.7 10*3/uL (0.11-0.8); Monocytes % 9.7 % (1.7-12.7); Neutrophils % 60.8 % (38.7-73.9); Platelet Count 224 T/CUMM (130-400); Red Blood Count 5.06 MC/CUMM (3.8-5.5); Red Cell Distribution Width 13.9 % (9.3-17.3); White Blood Count 7.01 T/CUMM (4-12)
[2022-07-20] MEDS: INSULIN REGULAR 100 UNIT/ML SUBCUT SCH ×5 (06:05→23:13)
[2022-07-20 06:22] LABS: Albumin 3.3 G/DL (3.4-5.0); Bilirubin,Total 0.5 MG/DL (0.20-1.00); Calcium 8.7 MG/DL (8.5-10.1); Osmolality,Calculated 282.1 MOS/KG (273-304); Potassium 3.4 MMOL/L (3.5-5.1)
[2022-07-20] MEDS ORDERED: KETOROLAC 30 MG/1 ML VIAL IV PRN (08:00)
[2022-07-20] MEDS ORDERED: POTASSIUM CHLORIDE RIDER 10 MEQ/100 ML PREMIX IV PRN (08:07)
[2022-07-20] MEDS ORDERED: POTASSIUM CHLORIDE 20 MEQ TABLET PO PRN (08:08)
[2022-07-20] MEDS: PANTOPRAZOLE 40 MG VIAL IV SCH (09:30)
[2022-07-20] MEDS: ONDANSETRON 4 MG/2 ML VIAL IV PRN ×2 (11:22→20:01)
[2022-07-21 05:36] LABS: Basophils % 0.8 % (0.0-0.8); Eosinophils # 0.1 10*3/uL (0.0-0.87); Eosinophils % 1.8 % (0.00-10.9); Hematocrit 42.5 VOL% (35.7-47.0); Hemoglobin 13.8 GM/DL (12.0-16.0); Immature Granulocytes % 0.2 %; Immature Granulocytes Absolute 0.01 #; Lymphocytes # 1.4 10*3/uL (1.4-4.0); Lymphocytes % 28.1 % (21.3-54.2); Mean Corpuscular HGB Conc 32.5 GM/DL (32-36); Mean Platelet Volume 9.1 FL (9.6-12.0); Monocytes # 0.5 10*3/uL (0.11-0.8); Monocytes % 9.4 % (1.7-12.7); Neutrophils % 59.7 % (38.7-73.9); Platelet Count 185 T/CUMM (130-400); Red Blood Count 4.83 MC/CUMM (3.8-5.5); Red Cell Distribution Width 13.5 % (9.3-17.3); White Blood Count 4.98 T/CUMM (4-12)
[2022-07-21 06:08] LABS: Albumin 3.2 G/DL (3.4-5.0); Bilirubin,Total 0.4 MG/DL (0.20-1.00); Calcium 8.8 MG/DL (8.5-10.1); Osmolality,Calculated 287.7 MOS/KG (273-304); Potassium 3.6 MMOL/L (3.5-5.1); Total Protein 6.7 G/DL (6.4-8.2)
[2022-07-21] MEDS: INSULIN REGULAR 100 UNIT/ML SUBCUT SCH ×3 (06:34→19:08)
[2022-07-21] MEDS ORDERED: EMPAGLIFLOZIN METFORMIN PO SCH (09:00)
[2022-07-21] MEDS: ONDANSETRON 4 MG/2 ML VIAL IV PRN (09:46)
[2022-07-21] MEDS: PANTOPRAZOLE 40 MG VIAL IV SCH (09:47)
[2022-07-21] MEDS: DEXTROSE 5% NACL 0.45% 1,000 ML IV SCH ×3 (09:54→17:10)
[2022-07-21] MEDS: ASPIRIN EC 81 MG TABLET PO SCH (10:33)
[2022-07-21] MEDS: LORATADINE 10 MG TABLET PO SCH (10:34)
[2022-07-21] MEDS: LOSARTAN 50 MG TABLET PO SCH (10:34)
[2022-07-21] MEDS: DAPAGLIFLOZIN 10 MG TABLET PO SCH (10:34)
[2022-07-21] MEDS: PANTOPRAZOLE 40 MG TABLET PO SCH ×2 (10:35→21:12)
[2022-07-21] MEDS: metFORMIN 500 MG TABLET PO SCH ×2 (10:35→17:10)
[2022-07-21] MEDS: PARoxetine 20 MG TABLET PO SCH (10:35)
[2022-07-21] MEDS: TOPIRAMATE 25 MG TABLET PO SCH ×2 (10:35→21:46)
[2022-07-21] MEDS: METOPROLOL SUCCINATE XL 100 MG TABLET PO SCH ×2 (10:35→21:12)
[2022-07-21] MEDS ORDERED: ROSUVASTATIN 10 MG TABLET PO SCH (21:00)
[2022-07-22] MEDS: INSULIN REGULAR 100 UNIT/ML SUBCUT SCH ×2 (01:43→06:07)
[2022-07-22] MEDS: DEXTROSE 5% NACL 0.45% 1,000 ML IV SCH (01:44)
[2022-07-22 06:46] VITALS: BP 151/81
[2022-07-22] MEDS: LORATADINE 10 MG TABLET PO SCH (08:18)
[2022-07-22] MEDS: LOSARTAN 50 MG TABLET PO SCH (08:18)
[2022-07-22] MEDS: ASPIRIN EC 81 MG TABLET PO SCH (08:18)
[2022-07-22] MEDS: TOPIRAMATE 25 MG TABLET PO SCH (08:18)
[2022-07-22] MEDS: PARoxetine 20 MG TABLET PO SCH (08:18)
[2022-07-22] MEDS: PANTOPRAZOLE 40 MG TABLET PO SCH (08:18)
[2022-07-22] MEDS: METOPROLOL SUCCINATE XL 100 MG TABLET PO SCH (08:19)
[2022-07-22] MEDS: metFORMIN 500 MG TABLET PO SCH (09:06)
[2022-07-22] MEDS: DAPAGLIFLOZIN 10 MG TABLET PO SCH (09:06)
== END 2022-07-22 09:57 | disposition home or self-care (01) | DRG 440 ==
LOC: N.ED 18:07 → N.EDINP 18:07 → N.3E 07-19 04:57
PROVIDERS: ADMIT Internal Medicine; ATTEND Internal Medicine